=== PATIENT | female | born 1970 | race Hispanic/Latino ===

== ENCOUNTER 2025-03-11 19:58 | Emergency (ER) | payer OTHER ==
[~2025-03-11] VITALS: Ht 157.5 cm; Wt 84.8 kg
[2025-03-11 20:22] LABS: IMMATURE GRANULOCYTE ABSOLUTE 0.04 K/uL (0-1); NUCLEATED RED BLOOD CELLS 0.0 % (0.0-0.19); PLATELET COUNT (AUTO) 322 K/uL (130-400); RED BLOOD CELL COUNT(AUTO) 5.10 MIL/uL (4.00-5.50); RED CELL DISTRIBUTION WIDTH 13.0 % (11.0-15.5); WHITE BLOOD COUNT (AUTO) 9.1 K/uL (4.8-10.8)
[2025-03-11 20:24] LABS: ADD UA MICROSCOPIC YES; APPEARANCE,URINE CLEAR (CLEAR); GLUCOSE, URINE (UA) NEGATIVE (NEGATIVE); LEUKOCYTE ESTERASE ,URINE 250 Leu/uL (NEGATIVE); NITRATE,URINE NEGATIVE (NEGATIVE); OCCULT BLOOD,URINE NEGATIVE (NEGATIVE)
--- NOTE | 2025-03-11 20:25 | EKG ---
[facility] Test Date: 2025-03-11 Test Time: 20:18:46 Pat Name: GINI NGUYEN Department: [facility] Room: Gender: F Electrician Front: [id number] : 1970 Requested By: ADDI GALEAS Order Number: [id number] Reading MD: Audi Weiner Measurements Intervals [place] Rate: 59 P: 7 IL: 116 QRS: 5 QRSD: 81 T: 28 QT: 400 QTc: 397 Interpretive Statements Sinus rhythm No previous ECG available for comparison Electronically Signed On 03-13-2025 17:42:47 CDT by Audi Weiner Please click the below link to view image of tracing.
[2025-03-11 20:30] LABS: SQUAMOUS EPITHELIAL CELL,UR MOD /HPF (0-2)
[2025-03-11 20:38] LABS: CREATININE 0.6 mg/dL (0.5-1.0); GLOMERULAR FILTR. RATE CALC 108.0 mL/min (>90); GLUCOSE,RANDOM 110.0 mg/dL (70-105); SODIUM SERUM 143.0 mmol/L (136-145); UREA NITROGEN, BLOOD 14.0 mg/dL (7-18)
[2025-03-11] MEDS: 0.9%NACL 1000ML 1,000 ML IV ONE (20:38)
[2025-03-11 20:47] LABS: ASPARTATE AMINOTRANSFERASE 18.0 U/L (10-37); CREATINE KINASE, TOTAL 36.0 U/L (21-232); TOTAL PROTEIN, SERUM 8.0 g/dL (6.0-8.3)
--- NOTE | 2025-03-11 21:03 | HMCIMG ---
EXAM: US Abdomen, Right Upper Quadrant. CLINICAL HISTORY: pain TECHNIQUE: Right upper quadrant sonography performed with image documentation. COMPARISON: None provided. FINDINGS: LIVER: Within normal limits in size and increased echogenicity is noted. GALLBLADDER: Gallstones are noted. No gallbladder wall thickening. COMMON BILE DUCT: Within normal limits in size. PANCREAS: The distal pancreas is obscured by bowel gas. The visualized portion of the pancreas appears within normal limits. RIGHT KIDNEY: Unremarkable. Normal renal contours. No renal mass or calculus. No hydronephrosis. IMPRESSION: 1. Fatty liver 2. Cholelithiasis /Alex
--- NOTE | 2025-03-11 21:58 | ERN ---
ED Note History of Present Illness Stated Complaint: C/O RUQ PAIN RADIATING TO BACK W/ N X V X 1 DAY Chief Complaint: Abdominal Pain Time Seen by MD: 20:01 Time Seen by Midlevel: 20:01 Dictation: The patient is a [id number]-kin-female with no past medical history who presents to the emergency department with complaints of right upper abdominal pain associated with nausea nonbloody vomiting onset today. Patient reports an episode of diarrhea this morning. Denies any fevers. Allergies: Coded Allergies: iodine (Unverified Allergy, Unknown, 03/11/25) Home Meds Active Scripts Dicyclomine HCl (Bentyl) 20 Mg Tab, 1 TAB PO TID for irritable bowel symptoms for 10 Days, #30 TAB 0 Refills Prov:ADDI GALEAS [facility] 03/11/25 Acetaminophen with Codeine (Acetaminophen-Cod #3 Tablet) 300 Mg-30 Mg Tablet, 1 TAB PO Q6HPRN PRN for pain for 7 Days, #15 TAB 0 Refills Prov:ADDI GALEAS [facility] 03/11/25 Ondansetron (Ondansetron Odt) 4 Mg Tab.rapdis, 4 MG PO Q6HPRN PRN for nausea, #16 TAB 0 Refills Prov:ADDI GALEAS [facility] 03/11/25 Ibuprofen (Ibuprofen) 600 Mg Tablet, 1 TAB PO TID for pain for 10 Days, #30 TAB 0 Refills with food Prov:ADDI GALEAS [facility] 03/11/25 Nitrofurantoin Monohyd/M-Cryst (Macrobid 100 mg Capsule) 100 Mg Capsule, 1 CAP PO BID for 5 Days, #10 CAP 0 Refills Prov:ADDI GALEAS [facility] 03/11/25 Past Medical History Past Medical History: No Pertinent History Surgical History: None RN Note Reviewed/Agreed w/PFSH: Yes Review of System Dictation Constitutional: Negative for fever,chills, and weight loss Eyes: Negative for injury, pain,redness, and discharge ENT: Negative for injury,pain or swelling Cardiovascular: Negative for chest pain, palpitations, and edema Respiratory: Negative for shortness of breath, cough, and wheezing, Abdomen/GI: Negative for constipation positive for right upper abdominal pain, nausea and vomiting, diarrhea Back: Negative for injury and pain : Negative for injury, bleeding and discharge MS/Extremity: Negative for injury and deformity Skin: Negative for rash, and discoloration Neuro: Negative for headache, weakness, numbness, tingling, and seizure Psych: Negative for suicide ideation, homicidal ideation, and hallucinations Initial Vital Sign VS Vital Signs Date Time Temp Pulse Resp B/P (MAP) Pulse Ox O2 Delivery O2 Flow Rate FiO2 03/11/25 20:01 98.4 71 20 203/112 100 Room Air 03/11/25 20:25 0 21 Physical Exam Dictation Vital Signs reviewed General Appearance: Alert, oriented x 3, no acute distress, well developed, n ourished. Head and Face: non-traumatic. Eyes: PERRL, pink conjunctivas, eyelid no trauma, anterior chamber with arcus senilis. Ears: Pinnas intact and no signs of trauma or erythema ear canals clear and no discharge TM no erythema Nose: No discharge, no bleeding. Oropharynx: Mouth normal, tongue pink. pharynx clear,no erythema, tonsils no exudates, no abscesses noted, mucous m embrane moist Neck: Supple, non-tender, no thyromegaly, no masses, no JVD, no bruits Breast:Deferred Chest:No tenderness, no crepitus, no paradoxical movement, no retractions Lungs:Clear, well-ventilated, symmetric, no rales, no wheezing, no rhonchi, no stridor, good breath sounds bilaterally Heart: Regular rate, regular rhythm, no murmur, no gallops Vascular: no peripheral edema, Abdomen: Soft, positive bowel sounds, nondistended, no guarding, right upper abd tenderness, no rebound, no masses no hepatomegaly, no splenomegaly, no Alfaro's sign, no hernias. Rectal: Deferred Genital: Deferred Neurological: Normal speech, motor function intact, sensory function intact Musculoskeletal: Neck nontender, full range of motion, back nontender, full range of motion, Extremities: nontender, full range of motion Skin: Color pink, dry, no turgor, no rash, no lacerations, no abrasions, no contusions. Lymphatic: Deferred Results (Laboratory/Radiology) Laboratory/Radiology Laboratory Tests Test 03/11/25 20:10 03/11/25 20:16 Urine Color LIGHT-YELLOW (YELLOW) Urine Appearance CLEAR (CLEAR) Urine pH 6.5 (5.0-8.0) Urine Specific Bedias 1.019 (1.001-1.031) Urine Protein NEGATIVE mg/dL (NEGATIVE) Urine Glucose (UA) NEGATIVE mg/dL (NEGATIVE) Urine Ketones 10 mg/dL (NEGATIVE) H Urine Occult Blood NEGATIVE (NEGATIVE) Urine Nitrate NEGATIVE (NEGATIVE) Urine Bilirubin NEGATIVE mg/dL (NEGATIVE) Urine Urobilinogen 0.2 mg/dL (0.2-1.0) Urine Leukocyte Esterase 250 Antony/uL (NEGATIVE) H Urine RBC 2-5 /HPF (0-1) H Urine WBC 11-25 /HPF (0-1) H Urine Squamous Epithelial Cells MOD /HPF (0-2) Urine Bacteria RARE /HPF (None Seen) Urine HCG, Qualitative NEGATIVE (NEGATIVE) White Blood Count 9.1 K/uL (4.8-10.8) Red Blood Count 5.10 MIL/uL (4.00-5.50) Hemoglobin 13.8 g/dL (12.0-16.0) Hematocrit 42.6 % (36-48) Mean Corpuscular Volume 83.5 fL (79-99) Mean Corpuscular Hemoglobin 27.1 pg (27.0-33.0) Mean Corpuscular Hemoglobin Concent 32.4 g/dL (32.0-36.0) Red Cell Distribution Width 13.0 % (11.0-15.5) Platelet Count 322 K/uL (130-400) Mean Platelet Volume 9.8 fL (7.5-10.5) Immature Granulocyte % (Auto) 0.4 % (0-1) Neutrophils (%) (Auto) 64.9 % (40.0-77.0) Lymphocytes (%) (Auto) 29.1 % (21.0-51.0) Monocytes (%) (Auto) 4.0 % (3.0-13.0) Eosinophils (%) (Auto) 1.2 % (0.0-8.0) Basophils (%) (Auto) 0.4 % (0.0-5.0) Neutrophils # (Auto) 5.9 K/uL (1.8-7.7) Lymphocytes # (Auto) 2.6 K/uL (1.0-4.8) Monocytes # (Auto) 0.4 K/uL (0.1-1.0) Eosinophils # (Auto) 0.11 K/uL (0.00-0.70) Basophils # (Auto) 0.04 K/uL (0.00-0.20) Absolute Immature Granulocyte (auto 0.04 K/uL (0-1) Nucleated Red Blood Cells 0.0 % (0.0-0.19) Sodium Level 143 mmol/L (136-145) Potassium Level 3.6 mmol/L (3.5-5.1) Chloride Level 105 mmol/L (101-111) Carbon Dioxide Level 29 mmol/L (21-32) Blood Urea Nitrogen 14 mg/dL (7-18) Creatinine 0.6 mg/dL (0.5-1.0) Glomerular Filtration Rate Calc 108 mL/min (>90) Random Glucose 110 mg/dL (70-105) H Total Calcium 9.2 mg/dL (8.5-10.1) Total Bilirubin 0.4 mg/dL (0.2-1.0) Direct Bilirubin 0.1 mg/dL (0.0-0.3) Aspartate Amino Transf (AST/SGOT) 18 U/L (10-37) Alanine Aminotransferase (ALT/SGPT) 33 U/L (12-78) Alkaline Phosphatase 126 U/L (50-136) Total Creatine Kinase 36 U/L (21-232) Troponin I High Sensitivity 6 ng/L (4-50) Total Protein 8.0 g/dL (6.0-8.3) Albumin 4.1 g/dL (3.5-5.0) Lipase 59 U/L (16-77) REASON: pain ORDERING PHYSICIAN: ADDI GALEAS PROCEDURE: [id number] - US ABDOMINAL RUQ\LTD EXAM: US Abdomen, Right Upper Quadrant. CLINICAL HISTORY: pain TECHNIQUE: Right upper quadrant sonography performed with image documentation. COMPARISON: None provided. FINDINGS: LIVER: Within normal limits in size and increased echogenicity is noted. GALLBLADDER: Gallstones are noted. No gallbladder wall thickening. COMMON BILE DUCT: Within normal limits in size. PANCREAS: The distal pancreas is obscured by bowel gas. The visualized portion of the pancreas appears within normal limits. RIGHT KIDNEY: Unremarkable. Normal renal contours. No renal mass or calculus. No hydronephrosis. IMPRESSION: 1. Fatty liver 2. Cholelithiasis /[place] Labs Reviewed?: Yes EKG: (+) rhythm (Sinus rhythm) EKG Comment: Date:03/11/2025 [id number] Ventricular rate:59 [place] interval:116 QRS duration:81 QT/QTc:400/397 EKG interpretation: Sinus rhythm Reviewed by ED Attending no STEMI ED Course ED Course Orders Procedure Category Date Status Time Cbc With Differential LAB 03/11/25 Complete 20:07 Troponin I High LAB 03/11/25 Complete Sensitivity 20:07 Urinalysis Profile LAB 03/11/25 Complete 20:07 12 Lead Ekg Tracing- EKG 03/11/25 Complete Technical 20:07 Creatine Kinase, Total LAB 03/11/25 Complete 20:07 Lipase LAB 03/11/25 Complete 20:07 Basic Metabolic Panel LAB 03/11/25 Complete 20:07 Hepatic Function Panel LAB 03/11/25 Complete 20:07 Us Abdominal Ruq\Ltd US 03/11/25 Resulted 20:17 0.9%Nacl 1000ml (Ns PHA 03/11/25 Complete 1000ml) 20:30 Morphine 4mg Syg PHA 03/11/25 Complete (Morphine 4mg Syg) 20:30 Ondansetron 4mg Inj PHA 03/11/25 Complete (Zofran 4mg Inj) 20:30 Pantoprazole 40mg Inj PHA 03/11/25 Complete (Protonix 40mg Inj 20:30 ,Urine Test LAB 03/11/25 Complete 20:17 Culture Urine RUSSELL 03/11/25 In Process 20:25 Ceftriaxone 1g Vial PHA 03/11/25 Complete (Rocephine 1g Inj) 21:30 Morphine 2mg Syg PHA 03/11/25 Complete (Morphine 2mg Syg) 22:00 Current Medications Medications (Trade) Dose Ordered Sig/Chava Route PRN Reason Start Time Stop Time Status Last Admin Dose Admin Ceftriaxone Sodium (ROCEphine 1G INJ) 1 gm ONCE ONCE IVPB 03/11/25 21:30 03/11/25 21:31 DC 03/11/25 21:33 Morphine Sulfate (morPHINE 2MG SYG) 2 mg ONCE ONCE IVP 03/11/25 22:00 03/11/25 22:01 DC 03/11/25 21:53 Morphine Sulfate (morPHINE 4MG SYG) 4 mg ONCE ONCE IVP 03/11/25 20:30 03/11/25 20:31 DC 03/11/25 20:38 Ondansetron HCl (zoFRAN 4MG INJ) 4 mg ONCE ONCE IVP 03/11/25 20:30 03/11/25 20:31 DC 03/11/25 20:38 Pantoprazole Sodium (PROTonix 40MG INJ) 40 mg ONCE ONCE IVP 03/11/25 20:30 03/11/25 20:31 DC 03/11/25 20:38 Sodium Chloride 1,000 ml @ 0 mls/hr ONCE ONCE IV 03/11/25 20:30 03/11/25 20:31 DC 03/11/25 20:38 Vital Signs Date Time Temp Pulse Resp B/P (MAP) Pulse Ox O2 Delivery O2 Flow Rate FiO2 03/11/25 22:33 98.2 64 16 152/74 100 Room Air* 0 21 03/11/25 21:54 98.4 62 16 146/82 100 Room Air* 0 21 03/11/25 20: 98.6 56 24 171/91 100 Room Air* 0 21 03/11/25 20:01 98.4 71 20 203/112 100 Room Air Medical Decision Making MDM The patient is a 52-mruv-hen-female with no past medical history who presents to the emergency department with complaints of right upper abdominal pain associated with nausea nonbloody vomiting onset today. Patient reports an episode of diarrhea this morning. Denies any fevers. CBC showed no leukocytosis, no anemia, chemistry showed no electrolyte imbalance, negative troponin, negative lipase, negative liver enzymes, urinalysis positive for leukocyte esterase. Ultrasound showed cholelithiasis. Patients pain improve. blood pressure improved after pain controlled. Patient will be discharge to follow up with PCP. On physical exam patient is in no acute distress, nontoxic appearance, stable vital signs. Differential diagnosis: Pancreatitis, gastritis, cholecystitis, cholelithiasis Need for hospitalization: Patient does not meet criteria for hospitalization. There are no social concerns with this patient. DX & DISP Disposition: Discharge Departure Impression: Primary Impression: Cholelithiasis Condition: Stable Scripts Dicyclomine HCl (Bentyl) 20 Mg Tab 1 TAB PO TID for irritable bowel symptoms for 10 Days, #30 TAB 0 Refills Prov: ADDI GALEAS [employer] 03/11/25 Acetaminophen with Codeine (Acetaminophen-Cod #3 Tablet) 300 Mg-30 Mg Tablet 1 TAB PO Q6HPRN PRN for pain for 7 Days, #15 TAB 0 Refills Prov: ADDI GALEAS [employer] 03/11/25 Ondansetron (Ondansetron Odt) 4 Mg Tab.rapdis 4 MG PO Q6HPRN PRN for nausea, #16 TAB 0 Refills Prov: ADDI GALEAS [employer] 03/11/25 Ibuprofen (Ibuprofen) 600 Mg Tablet 1 TAB PO TID for pain for 10 Days, #30 TAB 0 Refills with food Prov: ADDI GALEAS [employer] 03/11/25 Nitrofurantoin Monohyd/M-Cryst (Macrobid 100 mg Capsule) 100 Mg Capsule 1 CAP PO BID for 5 Days, #10 CAP 0 Refills Prov: ADDI GALEAS [employer] 03/11/25 Additional Instructions: Your labs were unremarkable except for urinary tract infection. Your ultrasound showed gallstones. Please avoid any food high in fat because these can exacerbate your symptoms. Take your medications as prescribe. If anything worsens please return to ER. FOLLOW-UP WITH PRIMARY CARE PROVIDER IN 1 TO 2 DAYS. TAKE MEDICATIONS DIRECTED HERE IN THE EMERGENCY ROOM. OKAY TO CONTINUE HOME MEDICATIONS UNLESS OTHERWISE DISCUSSED DURING YOUR VISIT IN THE EMERGENCY ROOM TODAY. RETURN TO YOUR NEAREST EMERGENCY ROOM IF SYMPTOMS WORSEN OR IF THERE IS NO IMPROVEMENT. CALL 911 IF YOU NEED IMMEDIATE ASSISTANCE. TAKE TYLENOL [id number] NEEDED AND IF NO CONTRAINDICATIONS ARE PRESENT. INCREASE ORAL HYDRATION. A WOUND CULTURE OR URINE CULTURE WAS ORDERED HERE IN THE EMERGENCY ROOM DEPARTMENT PLEASE FOLLOW-UP WITH PRIMARY CARE PROVIDER AND ADVISE THEM TO GET REPEAT PORTS FROM OUR FACILITY. IF YOU HAD ANY FLETCHER WRAP/SPLINTS THAT WERE APPLIED HERE, PL EASE DO NOT REMOVE THEM UNTIL YOU SEE YOUR PRIMARY CARE OR SPECIALTY. Referrals: SELF,REFERRAL (PCP) AFTABMAY Annette MOTT Time of Disposition: 22:04 I have reviewed the case, and I agree with, Diagnosis and Plan I performed a substantive portion of the visit. I have reviewed and personally made and approve the management plan that is documented in the notes by myself with SCOTT/resident. I acknowledged full responsibility for the patient's management plan. MILANA GLAEASJARAD SADLER Mar 11, 2025 21:58 GUNNER SEGURA DO Mar 11, 2025 23:56
[2025-03-11] MEDS ORDERED: NITR100C4 PO (22:08)
[2025-03-11] MEDS ORDERED: ONDA-243 PO (22:08)
[2025-03-11] MEDS ORDERED: ACET-2079 PO (22:08)
[2025-03-11] MEDS ORDERED: IBUP-1492 PO (22:08)
[2025-03-11] MEDS ORDERED: DICY20TA2 PO (22:14)
[2025-03-11 22:33] VITALS: BP 152/74; PULSE 64; RESP 16; TEMP 98.2; O2SAT 100
== END 2025-03-11 22:34 | disposition home or self-care (01) ==
LOC: EDH 19:58
DX: K80.20 Calculus of gallbladder without cholecystitis without obstruction (principal); R11.2 Nausea with vomiting, unspecified; Z88.8 Allergy status to other drugs, medicaments and biological substances; Z91.041 Radiographic dye allergy status; Z79.1 Long term (current) use of non-steroidal anti-inflammatories (NSAID)
CPT/HCPCS: 99285; 96365; 96375; 76705; 96361; 82550; 80076; 84484; 80048; 83690; 85025; 87086 ×2; 87186; 81001; 81025; 36415; 96376; 93005; J2270 ×2; J7030; J0696; J2405; J2470